=== PATIENT | male | born 1980 | race Caucasian/White ===

== ENCOUNTER 2020-04-13 12:16 | Emergency (ER) | payer MEDICAID ==
[~2020-04-13] VITALS: Ht 167.6 cm; Wt 99.8 kg
[2020-04-13 12:23] VITALS: Ht 167.6 cm; Wt 99.8 kg
[2020-04-13 13:55] VITALS: BP 169/90
== END 2020-04-13 13:55 | disposition home or self-care (01) ==
LOC: ED 12:16
DX: G51.0 Bell's palsy (principal)